=== PATIENT | female | born 1980 | race Caucasian/White ===

== ENCOUNTER 2019-07-10 08:04 | Emergency (ER) | payer BC ==
--- OUTSIDE RECORDS SUMMARY | 2019-07-10 08:06 | XMS REPORT ---
:1980 [facility] Address [address] [place] [address] Dr. Hernandez [address] [place] [id number] Care Team Providers Name Role Phone Unavailable Unavailable Unavailable Problems This patient has no known problems. Allergies, Adverse Reactions, Alerts This patient has no known allergies or adverse reactions. Medications This patient has no known medications.
[2019-07-10] MEDS ORDERED: KETOROLAC 30 MG/ML INJ ONE (08:48)
--- NOTE | 2019-07-10 09:30 | ER ---
Nurse's Notes [facility] Name: Anna Beckman Age: 39 yrs Sex: Female : 1980 Arrival Date: 07/10/2019 Time: 08:07 Bed 16 Private MD: Wild Cano D Diagnosis: Fall due to bumping against object;Nondisplaced fracture of right ulna styloid process Presentation: 07/10 08:13 Presenting complaint: Patient states: "I already have a 4 week old break to my right aa5 wrist and today I fell down some stairs and caught myself with my right hand so I hurt my wrist again". Pt c/o pain to right wrist. 08:13 Transition of care: patient was not received from another setting of care. Onset of aa5 symptoms was July 10, 2019. Risk Assessment: Do you want to hurt yourself or someone else? Patient reports no desire to harm self or others. Initial Sepsis Screen: Does the patient meet any 2 criteria? No. Patient's initial sepsis screen is negative. Does the patient have a suspected source of infection? No. Patient's initial sepsis screen is negative. Care prior to arrival: None. 08:13 Acuity: PAMELLA 4 aa5 08:13 Method Of Arrival: Ambulatory aa5 Triage Assessment: 08:15 Injury Description: Fell on the stairs and caught herself with her right hand. 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 - Ebola Screening: : No symptoms or risks identified at this time. - Family history:: not pertinent. - Social history:: Smoking status: Patient/guardian denies using tobacco. Screenin:15 Abuse screen: Denies threats or abuse. Nutritional screening: No deficits noted. rb1 Tuberculosis screening: No symptoms or risk factors identified. Fall Risk Fall in past 12 months (25 points). No secondary diagnosis (0 pts). No IV (0 pts). Ambulatory Aid- None/Bed Rest/Nurse Assist (0 pts). Gait- Normal/Bed Rest/Wheelchair (0 pts) Mental Status- Oriented to own ability (0 pts). Total Huagn Fall Scale indicates Low Risk Score (25-44 pts). Fall prevention measures have been instituted. Side Rails Up X 2 Placed close to Nursing Station 1:1 attendant Assigned to Pt. Frequent Obs/Assesments occuring Family Present and informed to notify staff if they need to leave bedside As available Patient and Family Educated on Fall Prevention Program and strategies. Assessment: 08:15 General: Appears uncomfortable, Behavior is calm, cooperative. Pain: Complains of pain rb1 in right wrist. Neuro: Level of Consciousness is awake, alert, obeys commands, Oriented to person, place, time, situation. Cardiovascular: Capillary refill < 3 seconds is brisk in bilateral fingers. Respiratory: Airway is patent Respiratory effort is even, unlabored, Respiratory pattern is regular, symmetrical. GI: No signs and/or symptoms were reported involving the gastrointestinal system. : No signs and/or symptoms were reported regarding the genitourinary system. Derm: Skin is pink, warm \\T\\ dry. Musculoskeletal: Range of motion: limited in right wrist. 08:15 Pain: Pain currently is 8 out of 10 on a pain scale. rb1 08:19 Reassessment: Pt. was given an ice pack. rb1 09:10 Reassessment: Patient appears in no apparent distress at this time. Patient and/or rb1 family updated on plan of care and expected duration. Pain level reassessed. Patient is alert, oriented x 3, equal unlabored respirations, skin warm/dry/pink. 09:35 Reassessment: Discharge pending due to the provider needing to speak with the pt. rb1 10:09 Reassessment: Patient appears in no apparent distress at this time. Patient and/or rb1 family updated on plan of care and expected duration. Pain level reassessed. Patient is alert, oriented x 3, equal unlabored respirations, skin warm/dry/pink. Patient states feeling better. Vital Signs: 08:15 BP 125 / 85; Pulse 74; Resp 18 S; Temp 98.9(O); Pulse Ox 99% on R/A; Weight 72.57 kg aa5 (R); Height 5 ft. 7 in. (170.18 cm); 09:10 BP 128 / 85; Pulse 76; Resp 16; Temp 98.7(O); Pulse Ox 100% on R/A; Pain 7/10; rb1 10:09 BP 126 / 83; Pulse 71; Resp 17; Temp 98.6(O); Pulse Ox 100% on R/A; Pain 6/10; rb1 08:15 Body Mass Index 25.06 (72.57 kg, 170.18 cm) aa5 ED Course: 08:07 Patient arrived in ED. as 08:07 Wild Cano MD is Private Physician. as 08:13 Arm band placed on Patient placed in an exam room, on a stretcher. aa5 08:15 Patient has correct armband on for positive identification. Bed in low position. Call rb1 light in reach. Side rails up X 1. Pulse ox on. NIBP on. 08:17 Jane Reilly, RN is Primary Nurse. rb1 08:20 Triage completed. aa5 08:23 James Turner MD is Attending Physician. kana 09:19 X-ray completed. Portable x-ray completed in exam room. Patient tolerated procedure sw well. 09:22 Forearm Right XRAY In Process Unspecified. EDMS 09:28 Wild Cano MD is Referral Physician. kana 10:10 No provider procedures requiring assistance completed. Patient did not have IV access rb1 during this emergency room visit. 10:13 Orthoglass splint: Sugar tong splint applied on right arm. Radial pulse present and jb1 within normal limits before and after application of splint. Capillary refill was two seconds before and after application of splint. Administered Medications: 08:46 CANCELLED (Duplicate Order): TORadol 60 mg IM once kana 08:51 Drug: TORadol 60 mg Route: IM; Site: left gluteus; rb1 09:10 Follow up: Response: No adverse reaction; Pain is decreased rb1 Outcome: 09:29 Discharge ordered by . kana 10:10 Patient left the ED. rb1 10:10 Discharged to home ambulatory, with friend. rb1 10:10 Condition: stable 10:10 Discharge instructions given to patient, Instructed on discharge instructions, follow up and referral plans. medication usage, Demonstrated understanding of instructions, follow-up care, medications, Prescriptions given X 1. Signatures: Dispatcher [employer] EDMS Aidan Mccabe jb1 James Turner MD MD cha Martinez, Amelia as Calderon, Audri, RN RN aa5 Lidia Hurst Rebecca, RN RN rb1
--- NOTE | 2019-07-10 09:31 | EDPHYS ---
Physician Documentation [facility] Name: Anna Beckman Age: 39 yrs Sex: Female : 1980 Arrival Date: 07/10/2019 Time: 08:07 Bed 16 Private MD: Wild Cano D ED Physician James Turner HPI: 07/10 08:47 This 39 yrs old Female presents to ER via Ambulatory with complaints of Wrist kana Injury. 08:47 The patient or guardian reports a contusion, decreased range of motion, pain. The kana complaints affect the right wrist diffusely. 08:48 The patient or guardian complains of decreased range of motion, pain, swelling, kana tenderness. The complaints affect the right antecubital area, dorsal aspect of right forearm, right elbow, right wrist, palmar aspect of right forearm and right forearm. Context: The problem was sustained at work. Onset: The symptoms/episode began/occurred just prior to arrival. Treatment prior to arrival includes: splinting the affected extremity. Modifying factors: The symptoms are alleviated by remaining still, the symptoms are aggravated by movement. 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 - Ebola Screening: : No symptoms or risks identified at this time. - Family history:: not pertinent. - Social history:: Smoking status: Patient/guardian denies using tobacco. ROS: 08:48 Constitutional: Negative for fever, chills, and weight loss, Eyes: Negative for injury, kana pain, redness, and discharge, ENT: Negative for injury, pain, and discharge, Neck: Negative for injury, pain, and swelling, Cardiovascular: Negative for chest pain, palpitations, and edema, Respiratory: Negative for shortness of breath, cough, wheezing, and pleuritic chest pain, Abdomen/GI: Negative for abdominal pain, nausea, vomiting, diarrhea, and constipation, Back: Negative for injury and pain, : Negative for injury, bleeding, discharge, and swelling, Skin: Negative for injury, rash, and discoloration, Neuro: Negative for headache, weakness, numbness, tingling, and seizure, Psych: Negative for depression, anxiety, suicide ideation, homicidal ideation, and hallucinations, Allergy/Immunology: Negative for hives, rash, and allergies, Endocrine: Negative for neck swelling, polydipsia, polyuria, polyphagia, and marked weight changes, Hematologic/Lymphatic: Negative for swollen nodes, abnormal bleeding, and unusual bruising. 08:48 MS/extremity: Positive for decreased range of motion, pain, swelling, tenderness, of the right antecubital area, dorsal aspect of right forearm, right wrist, right elbow and palmar aspect of right forearm. Exam: 08:48 Constitutional: This is a well developed, well nourished patient who is awake, alert, kana and in no acute distress. Head/Face: Normocephalic, atraumatic. Eyes: Pupils equal round and reactive to light, extra-ocular motions intact. Lids and lashes normal. Conjunctiva and sclera are non-icteric and not injected. Cornea within normal limits. Periorbital areas with no swelling, redness, or edema. ENT: Nares patent. No nasal discharge, no septal abnormalities noted. Tympanic membranes are normal and external auditory canals are clear. Oropharynx with no redness, swelling, or masses, exudates, or evidence of obstruction, uvula midline. Mucous membranes moist. Neck: Trachea midline, no thyromegaly or masses palpated, and no cervical lymphadenopathy. Supple, full range of motion without nuchal rigidity, or vertebral point tenderness. No Meningismus. Chest/axilla: Normal chest wall appearance and motion. Nontender with no deformity. No lesions are appreciated. Cardiovascular: Regular rate and rhythm with a normal S1 and S2. No gallops, murmurs, or rubs. Normal PMI, no JVD. No pulse deficits. Respiratory: Lungs have equal breath sounds bilaterally, clear to auscultation and percussion. No rales, rhonchi or wheezes noted. No increased work of breathing, no retractions or nasal flaring. Abdomen/GI: Soft, non-tender, with normal bowel sounds. No distension or tympany. No guarding or rebound. No evidence of tenderness throughout. Back: No spinal tenderness. No costovertebral tenderness. Full range of motion. Female : Normal external genitalia. Skin: Warm, dry with normal turgor. Normal color with no rashes, no lesions, and no evidence of cellulitis. Neuro: Awake and alert, GCS 15, oriented to person, place, time, and situation. Cranial nerves II-XII grossly intact. Motor strength 5/5 in all extremities. Sensory grossly intact. Cerebellar exam normal. Normal gait. Psych: Awake, alert, with orientation to person, place and time. Behavior, mood, and affect are within normal limits. 08:48 Musculoskeletal/extremity: Extremities: noted in the right arm: decreased ROM, pain. Vital Signs: 08:15 BP 125 / 85; Pulse 74; Resp 18 S; Temp 98.9(O); Pulse Ox 99% on R/A; Weight 72.57 kg aa5 (R); Height 5 ft. 7 in. (170.18 cm); 09:10 BP 128 / 85; Pulse 76; Resp 16; Temp 98.7(O); Pulse Ox 100% on R/A; Pain 7/10; rb1 10:09 BP 126 / 83; Pulse 71; Resp 17; Temp 98.6(O); Pulse Ox 100% on R/A; Pain 6/10; rb1 08:15 Body Mass Index 25.06 (72.57 kg, 170.18 cm) aa5 MDM: 08:23 Patient medically screened. [facility] 08:50 Data reviewed: vital signs, nurses notes, radiologic studies, plain films. [facility] 07/10 08:50 Order name: Forearm Right XRAY [facility] 07/10 08:46 Order name: Ice pack; Complete Time: 08:51 [facility] 07/10 09:29 Order name: Sugar Tong Forearm Splint; Complete Time: 10:13 [facility] 07/10 09:29 Order name: Sling; Complete Time: 10:13 [facility] Administered Medications: 08:46 CANCELLED (Duplicate Order): TORadol 60 mg IM once [facility] 08:51 Drug: TORadol 60 mg Route: IM; Site: left gluteus; rb1 09:10 Follow up: Response: No adverse reaction; Pain is decreased rb1 Disposition: 07/10/19 09:29 Discharged to Home. Impression: Fall due to bumping against object, Nondisplaced fracture of right ulna styloid process. - Condition is Stable. - Discharge Instructions: Wrist Fracture Treated With Immobilization. - Prescriptions for Ibuprofen 600 mg Oral Tablet - take 1 tablet by ORAL route every 6 hours As needed take with food; 30 tablet. - Medication Reconciliation Form, Thank You Letter, Antibiotic Education, Prescription Opioid Use form. - Follow up: Wild Cano; When: 2 - 3 days; Reason: Recheck today's complaints, Continuance of care, Re-evaluation by your physician. - Problem is new. - Symptoms have improved. Signatures: Dispatcher [employer] EDVA James Turner MD MD cha Calderon, Audri, RN RN aa5 Jane Reilly, RN RN rb1 Corrections: (The following items were deleted from the chart) 08:46 08:45 TORadol 60 mg IM once ordered. kana roger 08:57 08:46 Forearm Right W Compar+RAD.RAD.BRZ ordered. [facility] 10:10 09:29 07/10/2019 09:29 Discharged to Home. Impression: Fall due to bumping against rb1 object; Nondisplaced fracture of right ulna styloid process. Condition is Stable. Discharge Instructions: Wrist Fracture Treated With Immobilization. Prescriptions for Ibuprofen 600 mg Oral Tablet - take 1 tablet by ORAL route every 6 hours As needed take with food; 30 tablet. and Forms are Medication Reconciliation Form, Thank You Letter, Antibiotic Education, Prescription Opioid Use. Follow up: Wild Cano; When: 2 - 3 days; Reason: Recheck today's complaints, Continuance of care, Re-evaluation by your physician. Problem is new. Symptoms have improved. kana
--- NOTE | 2019-07-10 09:32 | RAD REPORT ---
EXAM DESCRIPTION: RAD - Forearm Right - 07/10/2019 9:20 am CLINICAL HISTORY: Fall, forearm and wrist pain, patient provided history of wrist fracture diagnosed 4 weeks earlier COMPARISON: None. FINDINGS: The patient has a nondisplaced fracture involving the ulna styloid. Appearance of the frac ture would be consistent with the four-week history. There is a faint lucency in the radial styloid. This could be acute or chronic. The radial styloid finding is a very subtle finding with no distracti on. No carpal bone acute finding. Soft tissues around the wrist are prominent. No foreign body. IMPRESSION: Subacute ulna styloid fracture without distraction or angulation. No definitive acute fractures seen. There is a very subtle or faint oblique lucency at the radial sty loid that could be acute or chronic. This is a very minimal finding.
== END 2019-07-10 10:10 | disposition home or self-care (01) ==
LOC: ER 08:04
PROC: 2W3CX1Z Immobilization of Right Lower Arm using Splint (ICD-10-PCS; principal; 2019-07-10)
DX: S52.614A Nondisplaced fracture of right ulna styloid process, initial encounter for closed fracture (principal); W18.00XA Striking against unspecified object with subsequent fall, initial encounter
CPT/HCPCS: 96372; 99284